=== PATIENT | female | born 1940 | race Caucasian/White ===

== ENCOUNTER 2022-06-25 11:10 | Inpatient (IN) ==
[2022-06-25] MEDS ORDERED: oxyCODONE/Acetamin 5/325 mg TAB PO ONE (13:59)
[2022-06-25 14:45] LABS: ABS Eosinophils 0.1 10^3/ul (0-0.6); ABS Lymphocytes 1.8 10^3/ul (1.0-4.8); ABS Monocytes 0.7 10^3/ul (0-0.8); ABS Neutrophils 6.6 10^3/ul (1.5-7.7); Eosinophil % 0.9 %; Hematocrit 44 % (35-47); Hemoglobin 14.8 g/dL (12.0-16.0); Lymphocyte % 19.4 %; Mean Corpuscular HGB Conc 34 g/dL (31-36); Mean Corpuscular Hemoglobin 30 pg (27-31); Mean Corpuscular Volume 89 fL (80-97); Mean Platelet Volume 8.3 fL (7.4-10.4); Nucleated Red Blood Cells % 0.3; Platelet Count 231 10^3/uL (150-450); Red Blood Count 4.89 10^6 /uL (3.70-4.87); Red Cell Distribution Width 14 % (10-15); White Blood Count 9.2 10^3/uL (3.5-10.8)
[2022-06-25] MEDS ORDERED: Morphine 2 MG/ML SYRINGE IV PRN (14:48)
[2022-06-25] MEDS ORDERED: Ondansetron 4 mg VIAL 2 MG/ML 2 ml VIAL IV PRN (14:48)
[2022-06-25 14:53] LABS: Activated Partial Thrombo Time 35.2 seconds (26.0-38.0); INR 1.01 (0.89-1.11)
[2022-06-25] MEDS ORDERED: Dextrose 50% Syringe 50 ml 25 GM/50 ML SYRINGE IV PUSH PRN ×2 (14:54)
[2022-06-25] MEDS ORDERED: Lactated Ringers 1000 ml BAG 1,000 ML IV SCH (15:00)
[2022-06-25] MEDS ORDERED: Heparin 5000 UNITS/ML 1 mL VIAL SUBCUT SCH (15:00)
[2022-06-25 15:20] LABS: Albumin 4.3 g/dL (3.2-5.2); Albumin/Globulin Ratio 1.3 (1-3); Calcium 9.6 mg/dL (8.6-10.3); Globulin 3.2 g/dL (2-4); Potassium 3.6 mmol/L (3.5-5.0); Total Bilirubin 0.5 mg/dL (0.2-1.0); Total Protein 7.5 g/dL (6.4-8.9); eGFR CKD-EPI 69.3 (>60)
[2022-06-26 05:11] LABS: ABS Eosinophils 0.1 10^3/ul (0-0.6); ABS Monocytes 0.5 10^3/ul (0-0.8); Eosinophil % 1.3 %; Hematocrit 40 % (35-47); Hemoglobin 13.5 g/dL (12.0-16.0); Lymphocyte % 26.5 %; Mean Corpuscular HGB Conc 34 g/dL (31-36); Mean Corpuscular Hemoglobin 30 pg (27-31); Mean Corpuscular Volume 89 fL (80-97); Mean Platelet Volume 8.3 fL (7.4-10.4); Platelet Count 210 10^3/uL (150-450); Red Blood Count 4.53 10^6 /uL (3.70-4.87); Red Cell Distribution Width 14 % (10-15); White Blood Count 7.7 10^3/uL (3.5-10.8)
[2022-06-26 05:50] LABS: Calcium 9.2 mg/dL (8.6-10.3); Magnesium 2.3 mg/dL (1.9-2.7); Potassium 4.1 mmol/L (3.5-5.0); eGFR CKD-EPI 65.6 (>60)
[2022-06-26] MEDS: Insulin GLARGINE 100 un/ml 10 ml VIAL SUBCUT SCH (09:15)
[2022-06-26 11:54] LABS: Direct Bilirubin 0.1 mg/dL (0.03-0.18); Indirect Bilirubin 0.5 mg/dL (0.3-1.0); Total Bilirubin 0.6 mg/dL (0.2-1.0)
[2022-06-26] MEDS: Enoxaparin 40 MG/0.4 ML SYR SUBCUT SCH (18:12)
[2022-06-27 07:59] LABS: ABS Lymphocytes 1.8 10^3/ul (1.0-4.8); ABS Monocytes 0.8 10^3/ul (0-0.8); ABS Neutrophils 4.9 10^3/ul (1.5-7.7); Eosinophil % 0.7 %; Hematocrit 41 % (35-47); Hemoglobin 13.8 g/dL (12.0-16.0); Lymphocyte % 23.5 %; Mean Corpuscular HGB Conc 34 g/dL (31-36); Mean Corpuscular Hemoglobin 30 pg (27-31); Mean Corpuscular Volume 89 fL (80-97); Mean Platelet Volume 8.7 fL (7.4-10.4); Platelet Count 206 10^3/uL (150-450); Red Blood Count 4.61 10^6 /uL (3.70-4.87); Red Cell Distribution Width 14 % (10-15); White Blood Count 7.5 10^3/uL (3.5-10.8)
[2022-06-27] MEDS: Insulin GLARGINE 100 un/ml 10 ml VIAL SUBCUT SCH (08:02)
[2022-06-27 08:22] LABS: Albumin 3.7 g/dL (3.2-5.2); Albumin/Globulin Ratio 1.2 (1-3); Calcium 9.4 mg/dL (8.6-10.3); Globulin 3.1 g/dL (2-4); Potassium 4.4 mmol/L (3.5-5.0); Total Bilirubin 0.7 mg/dL (0.2-1.0); Total Protein 6.8 g/dL (6.4-8.9); eGFR CKD-EPI 86.3 (>60)
[2022-06-27] MEDS ORDERED: Furosemide 20 mg/2 ml IV VIAL IV SLOW PU ONE (15:14)
[2022-06-27] MEDS: Enoxaparin 40 MG/0.4 ML SYR SUBCUT SCH (17:18)
[2022-06-28] MEDS: Insulin GLARGINE 100 un/ml 10 ml VIAL SUBCUT SCH (08:52)
[2022-06-28 09:33] LABS: Albumin 3.7 g/dL (3.2-5.2); Albumin/Globulin Ratio 1.2 (1-3); Calcium 9.6 mg/dL (8.6-10.3); Globulin 3.1 g/dL (2-4); Potassium 4.2 mmol/L (3.5-5.0); Total Bilirubin 0.6 mg/dL (0.2-1.0); Total Protein 6.8 g/dL (6.4-8.9); eGFR CKD-EPI 84.8 (>60)
[2022-06-28] MEDS ORDERED: Furosemide 20 mg/2 ml IV VIAL IV ONE (16:18)
[2022-06-28] MEDS: Enoxaparin 40 MG/0.4 ML SYR SUBCUT SCH (17:29)
[2022-06-29 06:26] LABS: Albumin 3.6 g/dL (3.2-5.2); Albumin/Globulin Ratio 1.2 (1-3); Calcium 9.4 mg/dL (8.6-10.3); Total Bilirubin 0.5 mg/dL (0.2-1.0); Total Protein 6.6 g/dL (6.4-8.9); eGFR CKD-EPI 75.8 (>60)
[2022-06-29] MEDS: Insulin GLARGINE 100 un/ml 10 ml VIAL SUBCUT SCH (08:25)
[2022-06-29] MEDS ORDERED: Furosemide 20 mg/2 ml IV VIAL IV ONE (10:38)
[2022-06-29] MEDS ORDERED: Remdesivir 100 mg Vial 200 MG in NS 0.9% 250 ml 210 ML IV ONE (15:00)
[2022-06-29] MEDS: Enoxaparin 40 MG/0.4 ML SYR SUBCUT SCH (16:38)
[2022-06-30 05:47] LABS: Albumin 3.5 g/dL (3.2-5.2); Albumin/Globulin Ratio 1.3 (1-3); Calcium 9.1 mg/dL (8.6-10.3); Globulin 2.7 g/dL (2-4); Potassium 4.1 mmol/L (3.5-5.0); Total Bilirubin 0.4 mg/dL (0.2-1.0); Total Protein 6.2 g/dL (6.4-8.9); eGFR CKD-EPI 79.4 (>60)
[2022-06-30] MEDS: Insulin GLARGINE 100 un/ml 10 ml VIAL SUBCUT SCH (09:33)
[2022-06-30] MEDS: Enoxaparin 40 MG/0.4 ML SYR SUBCUT SCH (16:47)
[2022-06-30] MEDS ORDERED: Insulin GLARGINE 100 un/ml 10 ml VIAL SUBCUT ONE (20:19)
[2022-06-30] MEDS: Remdesivir 100 mg Vial 100 MG in NS 0.9% 250 ml 230 ML IV SCH (21:51)
[2022-07-01] MEDS ORDERED: Iodixanol (CONTRAST) 320 MG/ML 100 ML SDV IV ONE (07:36)
[2022-07-01] MEDS ORDERED: Insulin GLARGINE 100 un/ml 10 ml VIAL SUBCUT SCH (09:00)
[2022-07-01] MEDS ORDERED: Insulin GLARGINE 100 un/ml 10 ml VIAL SUBCUT ONE (16:41)
[2022-07-01] MEDS: Enoxaparin 40 MG/0.4 ML SYR SUBCUT SCH (16:50)
[2022-07-01] MEDS: Remdesivir 100 mg Vial 100 MG in NS 0.9% 250 ml 230 ML IV SCH (21:13)
[2022-07-02] MEDS ORDERED: Insulin GLARGINE 100 un/ml 10 ml VIAL SUBCUT SCH (09:00)
[2022-07-02 15:50] VITALS: BP 139/73
== END 2022-07-02 16:45 | disposition home or self-care (01) | DRG 177 ==
LOC: ED 11:10 → EDHOLD 11:10 → MED 06-26 05:15 → SUATTDRO 06-26 17:30
PROVIDERS: ADMIT Internal Medicine; ATTEND Internal Medicine

== ENCOUNTER 2022-12-12 13:07 | Inpatient (IN) ==
[2022-12-12] MEDS ORDERED: Lactated Ringers 1000 ml BAG 1,000 ML IV ONE ×2 (13:27→14:17)
[2022-12-12 13:44] LABS: ABS Basophils 0.1 10^3/uL (0.0-0.1); ABS Lymphocytes 1.4 10^3/uL (1.0-4.8); ABS Monocytes 0.9 10^3/uL (0.0-0.9); ABS Neutrophils 16.8 10^3/uL (1.5-7.6); ABS Nucleated RBC 0.01 10^3/ul; Eosinophil % 0.1 %; Hematocrit 36.3 % (35-45); Lymphocyte % 7.4 %; Mean Corpuscular Hemoglobin 28.4 pg (27-33); Mean Corpuscular Volume 86.3 fL (80-97); Mean Platelet Volume 8.4 fL (7.5-11.2); Platelet Count 399 10^3/uL (150-450); Red Blood Count 4.21 10^6/uL (3.63-4.92); Red Cell Distribution Width 14.7 % (12-17); White Blood Count 19.3 10^3/uL (3.8-11.8)
[2022-12-12 13:53] LABS: Activated Partial Thrombo Time 30.4 seconds (26.0-38.0); INR 1.56 (0.88-1.18)
[2022-12-12] MEDS ORDERED: Cefepime 2 GM in Dextrose 2 GM/50 ML BAG IV ONE (14:05)
[2022-12-12] MEDS ORDERED: Vancomycin 1,500 MG in NS 0.9% 250 ml 250 ML IVPB ONE (14:30)
[2022-12-12 14:34] LABS: Albumin 3.3 g/dL (3.2-5.2); Albumin/Globulin Ratio 0.8 (1-3); C Reactive Protein 321.09 mg/L (<8.01); Calcium 9.1 mg/dL (8.6-10.3); Creatinine, Serum 1.04 mg/dL (0.51-0.95); Globulin 3.9 g/dL (2-4); Potassium 3.7 mmol/L (3.5-5.0); Total Bilirubin 0.6 mg/dL (0.2-1.0); Total Protein 7.2 g/dL (6.4-8.9); eGFR CKD-EPI 53.7 (>60)
[2022-12-12] MEDS ORDERED: Senna TAB 8.6 mg TAB PO PRN (14:53)
[2022-12-12] MEDS ORDERED: Magnesium Hydroxide LIQ 30 ML UDC PO PRN (14:53)
[2022-12-12] MEDS ORDERED: Lactated Ringers 1000 ml BAG 500 ML IV ONE (14:59)
[2022-12-12] MEDS ORDERED: metroNIDAZOLE IV 500 MG/100ML 500 MG/100 ML BAG IVPB SCH (16:00)
[2022-12-12] MEDS ORDERED: Vancomycin per Pharmacy 1 EA NOTE FOLLOW UP SCH (16:00)
[2022-12-12] MEDS ORDERED: Enoxaparin 40 MG/0.4 ML SYR SUBCUT SCH (16:00)
[2022-12-12] MEDS ORDERED: Furosemide 40 mg/4 ml IV VIAL ONE (16:52)
[2022-12-12] MEDS ORDERED: Furosemide 40 mg/4 ml IV VIAL IV ONE (17:00)
[2022-12-12] MEDS ORDERED: Iodixanol (CONTRAST) 320 MG/ML 100 ML SDV IV ONE ×2 (17:09→17:53)
[2022-12-12] MEDS ORDERED: Lorazepam PYXIS KEY PRN (17:21)
[2022-12-12] MEDS ORDERED: LORazepam 2 mg VIAL 1 ml IV PUSH ONE (17:21)
[2022-12-12 17:57] LABS: PO2 Arterial 119 mmHg (80-100)
[2022-12-12 18:04] LABS: PCO2 Arterial 72 mmHg (35-45)
[2022-12-12 19:39] LABS: Magnesium 2.2 mg/dL (1.9-2.7); Phosphorus 3.1 mg/dL (2.5-5.0)
[2022-12-12 19:40] LABS: PCO2 Arterial 46 mmHg (35-45); PO2 Arterial 76 mmHg (80-100)
[2022-12-12] MEDS ORDERED: Furosemide 40 mg/4 ml IV VIAL IV SLOW PU ONE (19:43)
[2022-12-12 19:47] LABS: High Sensitivity Troponin 1 Hr 794 pg/mL (<15)
[2022-12-12] MEDS: Heparin DRIP 25,000 UNITS BAG 25,000 UNITS/500 ML BAG IV SCH (21:38)
[2022-12-12 22:31] LABS: High Sensitivity Troponin 3 Hr 1971 pg/mL (<15)
[2022-12-13] MEDS: metroNIDAZOLE IV 500 MG/100ML 500 MG/100 ML BAG IVPB SCH ×3 (01:36→18:50)
[2022-12-13] MEDS ORDERED: Cefepime 2 GM in Dextrose 2 GM/50 ML BAG IV SCH (02:00)
[2022-12-13 04:21] LABS: ABS Lymphocytes 1.8 10^3/uL (1.0-4.8); ABS Monocytes 0.7 10^3/uL (0.0-0.9); ABS Neutrophils 11.3 10^3/uL (1.5-7.6); ABS Nucleated RBC 0.01 10^3/ul; Eosinophil % 0.1 %; Hematocrit 31.7 % (35-45); Hemoglobin 10.7 g/dL (11.5-14.3); Lymphocyte % 12.9 %; Mean Corpuscular Hemoglobin 28.9 pg (27-33); Mean Corpuscular Hgb Conc 33.7 g/dL (31-36); Mean Corpuscular Volume 85.9 fL (80-97); Mean Platelet Volume 8.2 fL (7.5-11.2); Platelet Count 305 10^3/uL (150-450); Red Blood Count 3.69 10^6/uL (3.63-4.92); Red Cell Distribution Width 14.6 % (12-17); White Blood Count 13.9 10^3/uL (3.8-11.8)
[2022-12-13] MEDS: Heparin 5000 UNITS/ML 1 mL VIAL IV SCH ×3 (04:41→18:53)
[2022-12-13 04:53] LABS: C Reactive Protein 276.02 mg/L (<8.01); Calcium 8.5 mg/dL (8.6-10.3); Creatinine, Serum 0.88 mg/dL (0.51-0.95); Phosphorus 4.6 mg/dL (2.5-5.0); Potassium 3.4 mmol/L (3.5-5.0); eGFR CKD-EPI 65.6 (>60)
[2022-12-13] MEDS: KCL 20 MEQ/100 ML IVPREMIX 20 MEQ/100 ML BAG IV SCH ×2 (06:21→08:29)
[2022-12-13] MEDS ORDERED: Albuterol/Ipratropium NEB.SOL (2.5/0.5 MG) 3 ML NEB.SOLN INH PRN (07:31)
[2022-12-13] MEDS ORDERED: Dextrose 50% Syringe 50 ml 25 GM/50 ML SYRINGE IV PUSH PRN (07:45)
[2022-12-13] MEDS ORDERED: Sulfur Hexaflouride MICROSPHR 25 MG VIAL ONE (08:51)
[2022-12-13] MEDS: Insulin GLARGINE 100 un/ml 10 ml VIAL SUBCUT SCH (08:52)
[2022-12-13] MEDS ORDERED: Furosemide 40 mg/4 ml IV VIAL IV ONE (09:18)
[2022-12-13 09:25] LABS: HDL Cholesterol 20.1 mg/dL
[2022-12-13] MEDS ORDERED: Vancomycin 1,250 MG in NS 0.9% 250 ml 250 ML IVPB SCH (14:00)
[2022-12-13] MEDS: Vancomycin 1,750 MG in NS 0.9% 500 ml BAG 500 ML IVPB SCH (15:47)
[2022-12-13] MEDS: Heparin DRIP 25,000 UNITS BAG 25,000 UNITS/500 ML BAG IV SCH (17:37)
[2022-12-14] MEDS: Heparin 5000 UNITS/ML 1 mL VIAL IV SCH ×2 (01:26→18:01)
[2022-12-14] MEDS: metroNIDAZOLE IV 500 MG/100ML 500 MG/100 ML BAG IVPB SCH ×3 (01:29→17:36)
[2022-12-14 04:54] LABS: ABS Basophils 0.1 10^3/uL (0.0-0.1); ABS Eosinophils 0.1 10^3/uL (0.0-0.5); ABS Lymphocytes 1.9 10^3/uL (1.0-4.8); ABS Monocytes 0.8 10^3/uL (0.0-0.9); ABS Neutrophils 9.2 10^3/uL (1.5-7.6); ABS Nucleated RBC 0.01 10^3/ul; Eosinophil % 0.8 %; Hematocrit 33.2 % (35-45); Lymphocyte % 15.9 %; Mean Corpuscular Hemoglobin 28.6 pg (27-33); Mean Corpuscular Hgb Conc 33.3 g/dL (31-36); Mean Platelet Volume 8.2 fL (7.5-11.2); Platelet Count 320 10^3/uL (150-450); Red Blood Count 3.86 10^6/uL (3.63-4.92); Red Cell Distribution Width 14.5 % (12-17); White Blood Count 12.1 10^3/uL (3.8-11.8)
[2022-12-14 05:39] LABS: Calcium 8.2 mg/dL (8.6-10.3); Creatinine, Serum 0.7 mg/dL (0.51-0.95); Magnesium 1.9 mg/dL (1.9-2.7); Potassium 3.3 mmol/L (3.5-5.0); eGFR CKD-EPI 86.3 (>60)
[2022-12-14] MEDS ORDERED: Potassium Chlor 20 meq TAB.ER PO ONE (05:57)
[2022-12-14] MEDS ORDERED: KCL 20 MEQ/100 ML IVPREMIX 20 MEQ/100 ML BAG IV ONE (05:57)
[2022-12-14] MEDS: Heparin DRIP 25,000 UNITS BAG 25,000 UNITS/500 ML BAG IV SCH ×2 (07:02→20:16)
[2022-12-14] MEDS ORDERED: Furosemide 20 mg/2 ml IV VIAL IV ONE (07:44)
[2022-12-14] MEDS ORDERED: Furosemide 20 mg/2 ml IV VIAL ONE (07:53)
[2022-12-14] MEDS: Insulin GLARGINE 100 un/ml 10 ml VIAL SUBCUT SCH (07:57)
[2022-12-14] MEDS ORDERED: ERTUGLIFLOZIN PO SCH (09:00)
[2022-12-14] MEDS: Vancomycin 1,750 MG in NS 0.9% 500 ml BAG 500 ML IVPB SCH (13:53)
[2022-12-14] MEDS ORDERED: Benzocaine/Butamben/Tetracain (CETACAINE - SINGLE USE) 5 gm TOPICAL ONE (14:09)
[2022-12-14] MEDS ORDERED: fentaNYL 100 mcg/2 ml 50 MCG/ML VIAL ONE (15:10)
[2022-12-14] MEDS ORDERED: Flumazenil 0.5 mg/5 ml 0.1 MG/ML 5 ml VIAL ONE (15:10)
[2022-12-14] MEDS ORDERED: Midazolam 5 mg/5 ml VIAL 1 mg/ml 5 ml VIAL (5 mg) ONE (15:10)
[2022-12-14] MEDS ORDERED: Naloxone 0.4 mg VIAL 0.4 mg/ml 1 ml VIAL ONE (15:10)
[2022-12-14] MEDS ORDERED: fentaNYL 100 mcg/2 ml 50 MCG/ML VIAL IV SLOW PU ONE (16:11)
[2022-12-14] MEDS ORDERED: Flumazenil 0.5 mg/5 ml 0.1 MG/ML 5 ml VIAL IV PRN (16:11)
[2022-12-14] MEDS ORDERED: Midazolam 10 mg/10 ml VIAL 1 mg/ml 10 ml VIAL (10 mg) IV SLOW PU ONE (16:11)
[2022-12-14] MEDS ORDERED: Naloxone 0.4 mg VIAL 0.4 mg/ml 1 ml VIAL IV PUSH PRN (16:11)
[2022-12-14] MEDS: Enoxaparin 40 MG/0.4 ML SYR SUBCUT SCH (20:19)
[2022-12-15] MEDS: metroNIDAZOLE IV 500 MG/100ML 500 MG/100 ML BAG IVPB SCH ×3 (02:42→18:48)
[2022-12-15 04:29] LABS: ABS Basophils 0.1 10^3/uL (0.0-0.1); ABS Eosinophils 0.1 10^3/uL (0.0-0.5); ABS Lymphocytes 2.7 10^3/uL (1.0-4.8); ABS Monocytes 0.7 10^3/uL (0.0-0.9); ABS Neutrophils 9.5 10^3/uL (1.5-7.6); Eosinophil % 0.8 %; Hematocrit 31.5 % (35-45); Hemoglobin 10.5 g/dL (11.5-14.3); Lymphocyte % 20.8 %; Mean Corpuscular Hemoglobin 28.9 pg (27-33); Mean Corpuscular Hgb Conc 33.3 g/dL (31-36); Mean Corpuscular Volume 86.8 fL (80-97); Platelet Count 327 10^3/uL (150-450); Red Blood Count 3.63 10^6/uL (3.63-4.92); Red Cell Distribution Width 14.4 % (12-17); White Blood Count 13.1 10^3/uL (3.8-11.8)
[2022-12-15 05:01] LABS: Calcium 8.1 mg/dL (8.6-10.3); Creatinine, Serum 0.69 mg/dL (0.51-0.95); Magnesium 1.7 mg/dL (1.9-2.7); eGFR CKD-EPI 86.6 (>60)
[2022-12-15] MEDS ORDERED: Magnesium Sulfate IV 3 GM in NS 0.9% 100 ml BAG 100 ML IVPB ONE (07:38)
[2022-12-15] MEDS: Insulin GLARGINE 100 un/ml 10 ml VIAL SUBCUT SCH (08:57)
[2022-12-15] MEDS: ERTUGLIFLOZIN PO SCH (08:58)
[2022-12-15] MEDS ORDERED: Aminophylline 25 MG/ML VIAL ONE (10:44)
[2022-12-15] MEDS ORDERED: Regadenoson 0.4 MG/5 ML SYRINGE ONE (10:44)
[2022-12-15] MEDS ORDERED: Vancomycin Trough Check NOTE FOLLOW UP ONE (13:30)
[2022-12-15] MEDS: Vancomycin 1,750 MG in NS 0.9% 500 ml BAG 500 ML IVPB SCH (16:03)
[2022-12-15] MEDS: Enoxaparin 40 MG/0.4 ML SYR SUBCUT SCH (23:35)
[2022-12-16] MEDS: metroNIDAZOLE IV 500 MG/100ML 500 MG/100 ML BAG IVPB SCH ×3 (02:07→19:02)
[2022-12-16 06:07] LABS: ABS Eosinophils 0.1 10^3/uL (0.0-0.5); ABS Lymphocytes 2.5 10^3/uL (1.0-4.8); ABS Monocytes 0.8 10^3/uL (0.0-0.9); ABS Neutrophils 10.6 10^3/uL (1.5-7.6); ABS Nucleated RBC 0.02 10^3/ul; Eosinophil % 0.6 %; Hematocrit 32.5 % (35-45); Hemoglobin 10.8 g/dL (11.5-14.3); Lymphocyte % 17.7 %; Mean Corpuscular Hemoglobin 28.7 pg (27-33); Mean Corpuscular Hgb Conc 33.1 g/dL (31-36); Mean Corpuscular Volume 86.8 fL (80-97); Mean Platelet Volume 8.4 fL (7.5-11.2); Nucleated Red Blood Cells % 0.1 /100 WBC (0.0-0.4); Platelet Count 340 10^3/uL (150-450); Red Blood Count 3.75 10^6/uL (3.63-4.92); Red Cell Distribution Width 14.5 % (12-17); White Blood Count 14.1 10^3/uL (3.8-11.8)
[2022-12-16 06:29] LABS: Calcium 8.4 mg/dL (8.6-10.3); Creatinine, Serum 0.68 mg/dL (0.51-0.95); Magnesium 2.2 mg/dL (1.9-2.7); eGFR CKD-EPI 86.9 (>60)
[2022-12-16] MEDS: ERTUGLIFLOZIN PO SCH (08:53)
[2022-12-16] MEDS: Insulin GLARGINE 100 un/ml 10 ml VIAL SUBCUT SCH (08:53)
[2022-12-16] MEDS: Vancomycin 1000 MG in NS 0.9% 250 ML IVPB SCH (15:21)
[2022-12-16] MEDS: Enoxaparin 40 MG/0.4 ML SYR SUBCUT SCH (19:49)
[2022-12-17] MEDS: metroNIDAZOLE IV 500 MG/100ML 500 MG/100 ML BAG IVPB SCH ×3 (01:19→18:33)
[2022-12-17] MEDS: Vancomycin 1000 MG in NS 0.9% 250 ML IVPB SCH ×2 (02:25→14:17)
[2022-12-17 07:11] LABS: Hematocrit 35.9 % (35-45); Mean Corpuscular Hemoglobin 28.6 pg (27-33); Mean Corpuscular Hgb Conc 33.3 g/dL (31-36); Mean Corpuscular Volume 85.8 fL (80-97); Mean Platelet Volume 8.3 fL (7.5-11.2); Platelet Count 348 10^3/uL (150-450); Red Blood Count 4.18 10^6/uL (3.63-4.92); Red Cell Distribution Width 14.9 % (12-17)
[2022-12-17 07:34] LABS: ABS Basophils 0.1 10^3/uL (0.0-0.1); ABS Eosinophils 0.1 10^3/uL (0.0-0.5); ABS Lymphocytes 2.7 10^3/uL (1.0-4.8); ABS Monocytes 0.7 10^3/uL (0.0-0.9); ABS Neutrophils 9.3 10^3/uL (1.5-7.6); ABS Nucleated RBC 0.02 10^3/ul; Eosinophil % 0.9 %; Lymphocyte % 20.9 %; Nucleated Red Blood Cells % 0.1 /100 WBC (0.0-0.4)
[2022-12-17 07:41] LABS: C Reactive Protein 90.67 mg/L (<8.01); Calcium 8.7 mg/dL (8.6-10.3); Creatinine, Serum 0.59 mg/dL (0.51-0.95); Potassium 4.2 mmol/L (3.5-5.0); eGFR CKD-EPI 89.9 (>60)
[2022-12-17] MEDS: ERTUGLIFLOZIN PO SCH (08:06)
[2022-12-17] MEDS: Insulin GLARGINE 100 un/ml 10 ml VIAL SUBCUT SCH (08:06)
[2022-12-17] MEDS ORDERED: Vancomycin Trough Check NOTE FOLLOW UP ONE (13:30)
[2022-12-17] MEDS: Enoxaparin 40 MG/0.4 ML SYR SUBCUT SCH (20:34)
[2022-12-18] MEDS: Vancomycin 1,250 MG in NS 0.9% 250 ml 250 ML IVPB SCH ×2 (00:17→12:11)
[2022-12-18] MEDS: metroNIDAZOLE IV 500 MG/100ML 500 MG/100 ML BAG IVPB SCH ×2 (02:08→08:34)
[2022-12-18 06:18] LABS: ABS Eosinophils 0.1 10^3/uL (0.0-0.5); ABS Lymphocytes 2.9 10^3/uL (1.0-4.8); ABS Monocytes 0.8 10^3/uL (0.0-0.9); ABS Neutrophils 7.8 10^3/uL (1.5-7.6); ABS Nucleated RBC 0.01 10^3/ul; Lymphocyte % 24.9 %; Mean Corpuscular Hemoglobin 28.6 pg (27-33); Mean Corpuscular Hgb Conc 33.2 g/dL (31-36); Mean Platelet Volume 8.3 fL (7.5-11.2); Nucleated Red Blood Cells % 0.1 /100 WBC (0.0-0.4); Platelet Count 353 10^3/uL (150-450); Red Blood Count 3.84 10^6/uL (3.63-4.92); Red Cell Distribution Width 14.9 % (12-17); White Blood Count 11.6 10^3/uL (3.8-11.8)
[2022-12-18 06:40] LABS: Calcium 8.6 mg/dL (8.6-10.3); Creatinine, Serum 0.62 mg/dL (0.51-0.95); Magnesium 1.9 mg/dL (1.9-2.7); Potassium 4.4 mmol/L (3.5-5.0); eGFR CKD-EPI 88.9 (>60)
[2022-12-18] MEDS: ERTUGLIFLOZIN PO SCH (08:27)
[2022-12-18] MEDS: Insulin GLARGINE 100 un/ml 10 ml VIAL SUBCUT SCH (08:28)
[2022-12-18 10:49] LABS: ABS Basophils 0.1 10^3/uL (0.0-0.1); ABS Eosinophils 0.1 10^3/uL (0.0-0.5); ABS Lymphocytes 2.1 10^3/uL (1.0-4.8); ABS Monocytes 0.8 10^3/uL (0.0-0.9); ABS Neutrophils 9.7 10^3/uL (1.5-7.6); ABS Nucleated RBC 0.01 10^3/ul; Eosinophil % 0.7 %; Hematocrit 37.9 % (35-45); Hemoglobin 12.4 g/dL (11.5-14.3); Lymphocyte % 16.7 %; Mean Corpuscular Hemoglobin 28.5 pg (27-33); Mean Corpuscular Hgb Conc 32.7 g/dL (31-36); Mean Corpuscular Volume 87.2 fL (80-97); Mean Platelet Volume 8.4 fL (7.5-11.2); Nucleated Red Blood Cells % 0.1 /100 WBC (0.0-0.4); Platelet Count 391 10^3/uL (150-450); Red Blood Count 4.34 10^6/uL (3.63-4.92); Red Cell Distribution Width 14.9 % (12-17); White Blood Count 12.8 10^3/uL (3.8-11.8)
[2022-12-18 11:10] LABS: Activated Partial Thrombo Time 35.9 seconds (26.0-38.0); INR 1.42 (0.88-1.18)
[2022-12-18 11:24] LABS: Calcium 9.1 mg/dL (8.6-10.3); Creatinine, Serum 0.64 mg/dL (0.51-0.95); Potassium 4.5 mmol/L (3.5-5.0); eGFR CKD-EPI 88.2 (>60)
[2022-12-18] MEDS: Enoxaparin 40 MG/0.4 ML SYR SUBCUT SCH (21:09)
[2022-12-19] MEDS: Vancomycin 1,250 MG in NS 0.9% 250 ml 250 ML IVPB SCH ×3 (00:01→23:49)
[2022-12-19 05:44] LABS: ABS Eosinophils 0.1 10^3/uL (0.0-0.5); ABS Monocytes 0.7 10^3/uL (0.0-0.9); ABS Neutrophils 6.2 10^3/uL (1.5-7.6); ABS Nucleated RBC 0.02 10^3/ul; Eosinophil % 1.3 %; Hematocrit 32.7 % (35-45); Hemoglobin 11.1 g/dL (11.5-14.3); Mean Corpuscular Hemoglobin 29.2 pg (27-33); Mean Corpuscular Volume 85.7 fL (80-97); Mean Platelet Volume 8.4 fL (7.5-11.2); Nucleated Red Blood Cells % 0.2 /100 WBC (0.0-0.4); Platelet Count 353 10^3/uL (150-450); Red Blood Count 3.82 10^6/uL (3.63-4.92); Red Cell Distribution Width 15.4 % (12-17); White Blood Count 10.1 10^3/uL (3.8-11.8)
[2022-12-19 06:02] LABS: Calcium 8.6 mg/dL (8.6-10.3); Creatinine, Serum 0.58 mg/dL (0.51-0.95); Magnesium 1.9 mg/dL (1.9-2.7); Potassium 4.4 mmol/L (3.5-5.0); eGFR CKD-EPI 90.3 (>60)
[2022-12-19] MEDS ORDERED: NS 0.9% 1000 ml BAG 1,000 ML IV SCH ×2 (07:00→09:00)
[2022-12-19] MEDS: Insulin GLARGINE 100 un/ml 10 ml VIAL SUBCUT SCH (08:41)
[2022-12-19] MEDS: ERTUGLIFLOZIN PO SCH (08:42)
[2022-12-19] MEDS ORDERED: Midazolam 10 mg/10 ml VIAL 1 mg/ml 10 ml VIAL (10 mg) IV SLOW PU ONE (08:51)
[2022-12-19] MEDS ORDERED: fentaNYL 100 mcg/2 ml 50 MCG/ML VIAL IV SLOW PU ONE (08:51)
[2022-12-19] MEDS ORDERED: Lidocaine 1% MPF 5 ML VIAL INJ ONE (10:25)
[2022-12-19] MEDS ORDERED: fentaNYL 100 mcg/2 ml 50 MCG/ML VIAL ONE (11:06)
[2022-12-19] MEDS ORDERED: Heparin 1,000 UNIT/ML 10 ml (10,000 UNITS) CATHLAB/DIALYSIS ONE (11:06)
[2022-12-19] MEDS ORDERED: Midazolam 5 mg/5 ml VIAL 1 mg/ml 5 ml VIAL (5 mg) ONE (11:06)
[2022-12-19] MEDS ORDERED: VERAPAMIL 2.5 MG/ML 2 ML VIAL ** 5 mg/2 ml ONE (11:06)
[2022-12-19] MEDS ORDERED: Heparin 2 UNITS/ML 1000 mls 2,000 ML IV ONE (11:07)
[2022-12-19] MEDS ORDERED: Lidocaine 1% MPF 5 ML VIAL ONE (11:07)
[2022-12-19] MEDS ORDERED: nitroGLYCERIN DRIP 25,000 MCG/250 ML BTL ONE (11:07)
[2022-12-19] MEDS ORDERED: Iohexol 350 (CONTRAST) 200 ML MDV IV ONE (11:07)
[2022-12-19] MEDS ORDERED: Vancomycin Trough Check NOTE FOLLOW UP ONE (11:30)
[2022-12-19] MEDS: Enoxaparin 40 MG/0.4 ML SYR SUBCUT SCH (21:20)
[2022-12-20] MEDS: Insulin GLARGINE 100 un/ml 10 ml VIAL SUBCUT SCH (08:21)
[2022-12-20 09:29] LABS: Creatinine, Serum 0.61 mg/dL (0.51-0.95); Vancomycin Trough 21.2 mcg/mL; eGFR CKD-EPI 89.2 (>60)
[2022-12-20] MEDS: ERTUGLIFLOZIN PO SCH (09:29)
[2022-12-20 10:30] LABS: Potassium 4.7 mmol/L (3.5-5.0)
[2022-12-20 10:31] LABS: Calcium 8.9 mg/dL (8.6-10.3); Magnesium 1.9 mg/dL (1.9-2.7)
[2022-12-20] MEDS: Vancomycin 1,250 MG in NS 0.9% 250 ml 250 ML IVPB SCH (11:42)
[2022-12-20] MEDS: Vancomycin 1000 MG in NS 0.9% 250 ML IVPB SCH (21:16)
[2022-12-20] MEDS: Enoxaparin 40 MG/0.4 ML SYR SUBCUT SCH (21:18)
[2022-12-21] MEDS: Insulin GLARGINE 100 un/ml 10 ml VIAL SUBCUT SCH (08:32)
[2022-12-21] MEDS: ERTUGLIFLOZIN PO SCH (08:52)
[2022-12-21] MEDS: Vancomycin 1000 MG in NS 0.9% 250 ML IVPB SCH (10:16)
[2022-12-21 10:36] VITALS: BP 124/42
[2022-12-25] MEDS ORDERED: Vancomycin Trough Check NOTE FOLLOW UP ONE (08:30)
== END 2022-12-21 13:40 | disposition home or self-care (01) | DRG 871 ==
LOC: EDHOLD 13:07 → ED 13:07 → SUATTDRO 14:53 → OBSVTOIN 14:53 → EDHOLD 19:06 → ICU 19:25 → MEDTELE 12-15 20:42
PROVIDERS: ADMIT Internal Medicine; ATTEND Student in an Organized Health Care Education/Training Program